=== PATIENT | female | born 1960 | race Caucasian/White ===

== ENCOUNTER 2018-01-30 09:05 | Emergency (ER) | payer BC ==
[2018-01-30 09:18] VITALS: BP 126/75
--- NOTE | 2018-01-30 10:02 | UC ---
Cardiac HPI - HPI Summary HPI Summary: 57-year-old female presents with left anterior chest wall pain after accidentally falling while carrying an ottoman. States she fell directly onto the edge of the ottoman onto her left upper anterior chest. States pain is a mild aching which worsens with deep coughing. She does have an occasional productive cough for yellow sputum however states she is a smoker and this is baseline for her. Denies fever, chills, palpitations, shortness of breath, hemoptysis, abdominal pain, nausea, or vomiting. - History of Current Complaint Chief Complaint: UCUpperExtremity Stated Complaint: RIB INJURY Time Seen by Provider: 01/30/18 09:56 Pain Intensity: 6 - Allergy/Home Medications Allergies/Adverse Reactions: Allergies Allergy/AdvReac Type Severity Reaction Status Date / Time bee venom protein (honey bee) Allergy Anaphylatic Verified 01/30/18 09:19 Shock PMH/Surg Hx/FS Hx/Imm Hx Previously Healthy: Yes - Denies significant PMH - Surgical History Surgical History: Yes Surgery Procedure, Year, and Place: cervical disk repair 2006. APPENDECTOMY - 2008 - Family History Known Family History: Positive: Diabetes - Mother Negative: Cardiac Disease, Hypertension - Social History Occupation: Employed Full-time Lives: Alone Alcohol Use: None Substance Use Type: None Smoking Status (MU): Light Every Day Tobacco Smoker Type: Cigarettes - Immunization History Most Recent Influenza Vaccination: unk Most Recent Tetanus Shot: unk Review of Systems All Other Systems Reviewed And Are Negative: Yes Constitutional: Negative: Fever, Chills Skin: Negative: Bruising Respiratory: Positive: Cough. Negative: Shortness Of Breath Cardiovascular: Negative: Palpitations, Chest Pain Gastrointestinal: Negative: Abdominal Pain, Vomiting, Nausea Musculoskeletal: Positive: Other: - Chest wall pain Is Patient Immunocompromised?: No Physical Exam - Summary Physical Exam Summary: GENERAL APPEARANCE: Well developed, well nourished, alert and cooperative, and appears to be in no acute distress. HEAD: Atraumatic. normocephalic. NECK: Neck supple, non-tender. CARDIAC: Normal S1 and S2. No S3, S4 or murmurs. Rhythm is regular. There is no peripheral edema, cyanosis or pallor. Extremities are warm and well perfused. Capillary refill is less than 2 seconds. LUNGS: Clear to auscultation and percussion without rales, rhonchi, wheezing or diminished breath sounds. Left upper anterior chest wall tenderness with palpation. No bruising, crepitus or subcutaneous emphysema noted. ABDOMEN: Positive bowel sounds. Soft, nondistended, nontender. No guarding or rebound. No masses or hepatosplenomegally. MUSKULOSKELETAL: ROM intact to all extremities. No joint erythema or tenderness. Normal muscular development. Normal gait. SKIN: Skin normal color, texture and turgor with no lesions or eruptions. Triage Information Reviewed: Yes Vital Signs: Initial Vital Signs Temp 98.6 F 01/30/18 09:15 Pulse 80 01/30/18 09:15 Resp 18 01/30/18 09:15 BP 126/75 01/30/18 09:15 Pulse Ox 100 01/30/18 09:15 Vital Signs Reviewed: Yes Diagnostics - Radiology No standard instances Radiology Interpretation Completed By: ED Physician - No acute cardiopulmonary pathology. No rib fracture noted. - Assessment/Plan Course Of Treatment: 57-year-old female presents with left anterior chest wall pain after accidentally falling while carrying an ottoman. States she fell directly onto the edge of the ottoman onto her left upper anterior chest. States pain is a mild aching which worsens with deep coughing. She does have an occasional productive cough for yellow sputum however states she is a smoker and this is baseline for her. Denies fever, chills, palpitations, shortness of breath, hemoptysis, abdominal pain, nausea, or vomiting. Afebrile. VSS. Exam unremarkable except for some left upper anterior chest wall tenderness. CXR negative for cardiopulmonary pathology or rib fracture. Recommend conservative treatment with NSAIDs and deep breathing exercises to prevent complications. She is to follow up with PCP in 5-7 days if symptoms persist. Warning symtoms reviewed with patient. Verbalizes understanding and agrees with POC. - Differential Diagnoses - Chest Pain Differential Diagnosis/HQI/PQRI: Chest Wall, Lower Respiratory Infection - Clinical Impression Provider Diagnosis: Left-sided chest wall pain Discharge - Sign-Out/Discharge Documenting (check all that apply): Patient Departure All imaging exams completed and their final reports reviewed: Yes - Discharge Plan Condition: Stable Disposition: HOME Prescriptions: Ibuprofen 600 mg PO Q8HR PRN #30 tablet PRN Reason: Pain Patient Education Materials: Chest Wall Pain (ED) Referrals: Cory Atkins MD [Primary Care Provider] - 5 Days (Follow up in 5-7 days if symptoms persist.) Additional Instructions: The x-ray performed in the clinic today did not show any evidence of rib fracture or pneumonia. There is a chance that there is a subtle rib fracture not not visible on the chest x-ray however I suspect that your pain is simply a contusion of the chest wall. Take ibuprofen 600 mg 1 tab every 8 hours as needed for pain. Be sure to do the deep breathing exercises discussed every 1-2 hours while awake to prevent pneumonia. Follow up with your primary care provider in 5-7 days if symptoms persist. Seek immediate medical attention in the emergency room if you develop fever greater than 100.5 F, have increased or persistent chest pain, difficulty breathing, or any worsening of symptoms. - Billing Disposition and Condition Condition: STABLE Disposition: Home
== END 2018-01-30 11:06 | disposition home or self-care (01) ==
LOC: UCEAST 09:05
DX: R07.89 Other chest pain (principal); R05 Cough; F17.210 Nicotine dependence, cigarettes, uncomplicated; Z91.030 Bee allergy status
CPT/HCPCS: 71046; 99212; G0463

== ENCOUNTER 2018-07-31 08:22 | Emergency (ER) | payer BC ==
[2018-07-31 08:34] VITALS: BP 115/64
--- NOTE | 2018-07-31 09:27 | UC ---
Skin Complaint HPI - HPI Summary HPI Summary: 57-year-old female comes in with a chief complaint of rash. Started about a week ago after she been outside.. She says she was scratching and now it's spreading all over body. She's pressured poison sindy or poison oak. The fevers or chills feels well otherwise. She describes little vesicles that of fluid that break when she scratches them. - History of Current Complaint Chief Complaint: UCSkin Time Seen by Provider: 07/31/18 09:21 Stated Complaint: POISION SINDY/OAK Pain Intensity: 0 - Allergy/Home Medications Allergies/Adverse Reactions: Allergies Allergy/AdvReac Type Severity Reaction Status Date / Time bee venom protein (honey bee) Allergy Anaphylatic Verified 07/31/18 08:33 Shock PMH/Surg Hx/FS Hx/Imm Hx Previously Healthy: Yes - Surgical History Surgical History: Yes Surgery Procedure, Year, and Place: cervical disk repair 2006. APPENDECTOMY - 2008 - Family History Known Family History: Positive: Diabetes - Mother Negative: Cardiac Disease, Hypertension - Social History Alcohol Use: None Substance Use Type: None Smoking Status (MU): Light Every Day Tobacco Smoker Type: Cigarettes - Immunization History Most Recent Influenza Vaccination: unk Most Recent Tetanus Shot: unk Review of Systems All Other Systems Reviewed And Are Negative: Yes Constitutional: Positive: Negative Skin: Positive: Other - SEE HPI Eyes: Positive: Negative ENT: Positive: Negative Respiratory: Positive: Negative Cardiovascular: Positive: Negative Gastrointestinal: Positive: Negative Motor: Positive: Negative Neurovascular: Positive: Negative Musculoskeletal: Positive: Negative Neurological: Positive: Negative Psychological: Positive: Negative Is Patient Immunocompromised?: No Physical Exam Triage Information Reviewed: Yes Appearance: Well-Appearing, No Pain Distress, Well-Nourished Vital Signs: Initial Vital Signs Temp 98.1 F 07/31/18 08:29 Pulse 78 07/31/18 08:29 Resp 18 07/31/18 08:29 BP 115/64 07/31/18 08:29 Pulse Ox 99 07/31/18 08:29 Vital Signs Reviewed: Yes Eye Exam: Normal Eyes: Positive: Conjunctiva Clear Neck: Positive: Supple Respiratory: Positive: No respiratory distress Musculoskeletal: Positive: Strength Intact, ROM Intact Neurological Exam: Normal Neurological: Positive: Alert, Muscle Tone Normal Psychological Exam: Normal Psychological: Positive: Age Appropriate Behavior Skin: Positive: Other - MULTIPLE AREAS ON ARMS/NECK/LEGS OF ERYTHEMA WITH EXCORIATION. NO REAINAGE. SLIGHTLY RAISED. Course/Dx - Diagnoses Provider Diagnosis: Contact dermatitis due to poison sindy Discharge - Sign-Out/Discharge Documenting (check all that apply): Patient Departure All imaging exams completed and their final reports reviewed: No Studies - Discharge Plan Condition: Stable Disposition: HOME Prescriptions: methylPREDNISolone [Medrol Dosepak 4 MG*] 0 mg PO .SEE JANAE INSTRUCTION #1 janae Patient Education Materials: Poison Sindy (ED) Referrals: Cory Atkins MD [Primary Care Provider] - Additional Instructions: FOLLOW UP WITH YOUR DOCTOR IF NOT COMPLETELY IMPROVED. GET RECHECKED SOONER IF YOUR CONDITION WORSENS OR ANY QUESTIONS OR CONCERNS. - Billing Disposition and Condition Condition: STABLE Disposition: Home
== END 2018-07-31 09:36 | disposition home or self-care (01) ==
LOC: UCEAST 08:22
DX: L25.9 Unspecified contact dermatitis, unspecified cause (principal); F17.210 Nicotine dependence, cigarettes, uncomplicated
CPT/HCPCS: 99212; G0463